=== PATIENT | male | born 1995 | race American Indian/Alaskan Native ===

== ENCOUNTER 2017-12-03 15:14 | Emergency (ER) | payer OTHER ==
--- NOTE | 2017-12-03 15:46 | Emergency Department Report ---
HPI - General Chief Complaint: Chest Pain - HPI HPI: The patient is a 22-year-old male presents for evaluation of chest pain. The patient reports moderate in severity chest pain for the past 8-10 hours, sharp in quality, midsternal in location, exacerbated with movement, and constant since onset. The patient shares that he has experienced similar symptoms for many years. The patient denies fever, neck pain, parasthesias, dyspnea, cough, hemoptysis, palpitations, dizziness, syncope, unilateral leg swelling, calf muscle pain. Patient also denies cocaine or other stimulant use, history of DVT or PE, recent immobilization, or history of cancer. ED Past Medical Hx - Medications Home Medications: Home Medications Medication Instructions Recorded Confirmed Last Taken Type Cyclobenzaprine HCl [Flexeril 5 MG 5 mg PO Q8HR PRN #12 tab 12/03/17 Unknown Rx TAB] Omeprazole Magnesium [PriLOSEC Otc] 20 mg PO QDAY #14 tablet. 12/03/17 Unknown Rx ED Review of Systems ROS: Stated complaint: CHEST PAIN Other details as noted in HPI Constitutional: denies: fever ENT: denies: throat or neck pain Respiratory: denies: cough, shortness of breath Cardiovascular: reports: chest pain Endocrine: denies unexplained weight loss or gain Gastrointestinal: denies: abdominal pain, nausea Genitourinary: denies: dysuria Musculoskeletal: denies: leg swelling Skin: denies: rash Neurological: denies: headache Hematological/Lymphatic: denies: easy bleeding or easy bruising Psych: denies sadness or hopelessness Physical Exam - Physical Exam Vital Signs: Blood pressure 146/72 Heart rate 87 O2 saturation 100% Temperature 98.5F RR 18 Physical Exam: General: well-nourished, well-developed, no acute distress Head: Normocephalic, atraumatic Eyes: normal sclera ENT: Mucous membranes are pale and dry Neck: No neck stiffness, no cervical adenopathy Respiratory: Breath sounds equal bilaterally, no wheezing, rales, or rhonchi Cardio: S1 and S2 present, no murmurs, rubs, gallops, capillary refill is delayed Abdomen: Normoactive bowel sounds, soft abdomen, no rigidity, no guarding or rebound tenderness Chest WALL/Back: No tenderness to palpation of the chest wall, no CVA tenderness with percussion Musc: No pitting edema Skin: No rash Neuro: no facial drooping, normal speech Psych: Normal affect ED Medical Decision Making - Lab Data Result diagrams: 12/03/17 16:02 12/03/17 16:02 - Medical Decision Making The patient was seen and examined by myself. The patient is placed on a social work coordinator and continuous pulse ox. On initial evaluation, the patient was found to be in no distress. EKG was negative for findings suggestive of acute cardiac infarct. Labs and imaging are obtained. The patient is given 1 L normal saline fluid bolus for treatment of dehydration. Lab results reveal elevated hemoglobin and hematocrit, consistent with hemoconcentration and exam findings of dehydration, and otherwise labs were grossly unremarkable, including normal troponin level. The patient was reevaluated and reported that their symptoms were markedly improved. As the patient has a APOLINAR risk score less than 2, and a well's score less than 2, the patient is at low risk of ACS or pulmonary emboli etiology of their symptoms. The patient is stable for discharge with outpatient follow-up. The patient is given follow-up and return instructions. The patient expressed understanding and agreed with the plan. The patient is discharged in stable condition. Critical care attestation.: If time is entered above; I have spent that time in minutes in the direct care of this critically ill patient, excluding procedure time. ED Disposition Clinical Impression: Acute chest pain, Dehydration Disposition: - TO HOME OR SELFCARE Is pt being admited?: No Does the pt Need Aspirin: No Condition: Stable Instructions: Chest Pain (ED), Costochondritis (ED) Referrals: PRIMARY CAREMD [Primary Care Provider] - 3-5 Days [facility] [Outside] - 3-5 Days Time of Disposition: 17:48
[2017-12-03] MEDS ORDERED: SUBLIMAZE IV ONE (15:57)
[2017-12-03] MEDS ORDERED: ATIVAN IV ONE (15:59)
[2017-12-03 16:17] LABS: Basophils % (Auto) 0.3 % (0.0-1.8); Eosinophils % (Auto) 0.1 % (0.0-4.3); Hematocrit 48.6 % (35.5-45.6); Hemoglobin 16.1 gm/dl (11.8-15.2); Lymphocytes % (Auto) 11.2 % (13.4-35.0); Mean Corpuscular HGB Conc 33 % (32-34); Mean Corpuscular Hemoglobin 29 pg (28-32); Mean Corpuscular Volume 87 fl (84-94); Monocytes # (Auto) 0.5 K/mm3 (0.0-0.8); Monocytes % (Auto) 6.3 % (0.0-7.3); Platelet Count 189 K/mm3 (140-440); Red Cell Distribution Width 12.8 % (13.2-15.2)
--- NOTE | 2017-12-03 16:17 | XRay Report ---
FINAL REPORT PROCEDURE: XR CHEST 1V AP TECHNIQUE: Chest radiograph anteroposterior view. CPT 61629 HISTORY: Chest pain. COMPARISON: No prior studies are available for comparison. FINDINGS: Heart: Normal. Mediastinum/Vessels: Normal. Lungs/Pleural space: Normal. Bony thorax: No acute osseous abnormality. Life support devices: None. IMPRESSION: There is no radiographic evidence of acute cardiopulmonary disease.
[2017-12-03 16:27] LABS: BUN/Creatinine Ratio 9; Blood Urea Nitrogen 8 mg/dL (9-20); Calcium 10.4 mg/dL (8.4-10.2); Hemolysis Index 14
[2017-12-03 18:10] VITALS: BP 128/70
== END 2017-12-03 18:08 | disposition home or self-care (01) ==
LOC: ED 15:14
DX: R07.89 Other chest pain (principal); E86.0 Dehydration
CPT/HCPCS: 36415; 71045; 80048; 83880; 84484; 85025; 93005; 93010; 96374; 96375; 99285; J2060; J3010